=== PATIENT | female | born 1995 | race Caucasian/White ===

== ENCOUNTER 2017-05-19 14:14 | Emergency (ER) | payer MEDICAID ==
[~2017-05-19] VITALS: Ht 170.2 cm; Wt 63.5 kg
[~2017-05-19 14:14] MED LIST: PREN-153 OR; PREN-96 OR
[2017-05-19] MEDS ORDERED: ACTIVATED CHARCOAL 50 GM/240 ML SOL PO ONE (14:45)
[2017-05-19 15:10] LABS: Basophils # (auto) 0 uL; Basophils % (auto) 0.4 % (0.0-2.0); CONDITION Y; Eosinophils # (auto) 0.1 uL; Eosinophils % (auto) 1.6 % (0.0-7.0); Hematocrit 41.8 % (36.0-46.0); Hemoglobin 14.3 g/dL (12.2-16.2); Lymphocytes # (auto) 2.3 uL; Lymphocytes % (auto) 35.8 % (10.0-50.0); Mean Corpuscular Hemoglobin 31.2 pg (28.0-32.0); Mean Corpuscular Hgb Conc. 34.1 g/dL (32.0-36.0); Mean Corpuscular Volume 91.3 fL (80.0-100.0); Mean Platelet Volume 8.5 fL (7.4-10.4); Monocytes # (auto) 0.7 uL; Monocytes % (auto) 10.3 % (0.0-12.0); Neutrophils # (auto) 3.4 uL; Neutrophils % (auto) 51.9 % (37.0-80.0); Platelet Count (auto) 363 10^3/uL (140-450); Red Cell Distribution Width 12.7 % (11.6-16.0); White Blood Cell 6.5 10^3/uL (4.4-10.8)
[2017-05-19 15:28] LABS: Albumin 3.8 g/dL (3.4-5.0); Alkaline Phosphatase 26 U/L (45-117); Anion Gap 8 (5-15); Aspartate Aminotransferase 9 U/L (15-37); BUN/Creatinine Ratio 13.2; Bilirubin, Total 0.7 mg/dL (0.2-1.0); Blood Urea Nitrogen 9 mg/dL (7-18); Calcium 8.5 mg/dL (8.5-10.1); Carbon Dioxide 23 mmol/L (21-32); Chloride 112 mmol/L (98-107); GFR African American 140 mL/min; GFR Non-African American 116 mL/min; Glucose 108 mg/dL (74-106); Potassium 3.3 mmol/L (3.5-5.1); Sodium 143 mmol/L (136-145); Total Protein 7.7 g/dL (6.4-8.2)
[2017-05-19 15:30] LABS: Acetaminophen < 2.0 ug/mL (10-30); Salicylate < 1.7 mg/dL (2.8-20.0)
[2017-05-21] MEDS ORDERED: BACITRACIN TOP OINT 1 UD PKG TOP ONE (14:15)
[2017-05-21] MEDS ORDERED: IBUPROFEN 600 MG TAB PO ONE (15:00)
[2017-05-21] MEDS ORDERED: ALPRAZolam 0.5 MG TAB PO ONE (16:15)
[2017-05-21 19:16] VITALS: BP 122/78
== END 2017-05-21 15:02 | disposition short-term general hospital (02) ==
LOC: ER 14:15
DX: R45.851 Suicidal ideations (principal); F41.9 Anxiety disorder, unspecified; F12.10 Cannabis abuse, uncomplicated; F31.9 Bipolar disorder, unspecified; F17.210 Nicotine dependence, cigarettes, uncomplicated
CPT/HCPCS: 36415; 80053; 80307; 80320; 80329; 85025; 93005

== ENCOUNTER 2019-07-03 09:26 | Emergency (ER) | payer MEDICAID, OTHER ==
[~2019-07-03] VITALS: Ht 172.7 cm; Wt 65.8 kg
[2019-07-03 09:30] VITALS: BP 138/91
== END 2019-07-03 09:34 | disposition left against medical advice (07) ==
LOC: ER 09:29
DX: S01.311A Laceration without foreign body of right ear, initial encounter (principal); Z53.21 Procedure and treatment not carried out due to patient leaving prior to being seen by health care provider; X58.XXXA Exposure to other specified factors, initial encounter; Y93.89 Activity, other specified; Y99.8 Other external cause status; Y92.89 Other specified places as the place of occurrence of the external cause

== ENCOUNTER 2019-12-09 18:53 | Inpatient (IN) | payer SELFPAY ==
[~2019-12-09] VITALS: Ht 170.2 cm; Wt 64.5 kg
[2019-12-09] MEDS ORDERED: SODIUM CHLORIDE 0.9% 1,000 ML IV ONE (19:20)
[2019-12-09] MEDS ORDERED: HYDROmorphone HCL 2 MG/ML VL IV ONE (19:30)
[2019-12-09] MEDS ORDERED: ONDANSETRON HCL 4 MG/2 ML VIAL IV ONE (19:30)
[2019-12-09 22:27] LABS: Eosinophils # (auto) 0 uL; Eosinophils % (auto) 0.1 % (0.0-7.0)
[2019-12-09 22:28] LABS: Basophils # (auto) 0.1 uL; Basophils % (auto) 0.4 % (0.0-2.0); Hematocrit 34.3 % (36.0-46.0); Hemoglobin 11.3 g/dL (12.2-16.2); Lymphocytes # (auto) 1.2 uL; Lymphocytes % (auto) 8.2 % (10.0-50.0); Mean Corpuscular Hemoglobin 27.6 pg (28.0-32.0); Mean Corpuscular Hgb Conc. 33.1 g/dL (32.0-36.0); Mean Corpuscular Volume 83.4 fL (80.0-100.0); Monocytes # (auto) 1.8 uL; Monocytes % (auto) 12.1 % (0.0-12.0); Neutrophils # (auto) 11.8 uL; Neutrophils % (auto) 79.2 % (37.0-80.0); Platelet Count (auto) 503 10^3/uL (140-450); Red Blood Cells 4.11 10^6/uL (4.0-5.20); Red Cell Distribution Width 14.6 % (11.8-14.3); White Blood Cell 14.9 10^3/uL (4.4-10.8)
[2019-12-09 23:33] LABS: Urine Bacteria FEW /hpf (None Seen); Urine Blood Negative /uL (Negative); Urine Mucus FEW (None Seen); Urine Specific Gravity 1.025 (1.001-1.035); Urine WBC 3 /hpf (0 - 5)
[2019-12-09 23:34] LABS: Alcohol, Urine < 3.0 mg/dL (0-5); Amphetamine Screen, Urine POSITIVE (NEGATIVE); Barbiturate Scree,Urine NEGATIVE (NEGATIVE); Benzodiazephine Screen, Urine NEGATIVE (NEGATIVE); Cannabinoid Screen, Urine NEGATIVE (NEGATIVE); Cocaine Screen, Urine NEGATIVE (NEGATIVE); Opiate Scree,Urine NEGATIVE (NEGATIVE); Phencyclidine Screen, Urine NEGATIVE (NEGATIVE)
[2019-12-09 23:48] LABS: Albumin 2.3 g/dL (3.4-5.0); BUN/Creatinine Ratio 18.4; Calcium 8.1 mg/dL (8.5-10.1); Potassium 3.8 mmol/L (3.5-5.1)
[2019-12-09 23:51] LABS: Bilirubin, Total 0.7 mg/dL (0.2-1.0); Total Protein 7.8 g/dL (6.4-8.2)
[2019-12-10] MEDS ORDERED: MIDAZOLAM HCL 5 MG/ML-1ML VIAL IV ONE (03:00)
[2019-12-10] MEDS ORDERED: SODIUM CHLORIDE 0.9% 1,000 ML IV ONE (03:15)
[2019-12-10] MEDS ORDERED: MORPHINE SULFATE 4 MG/ML SYR/VIAL IV PRN ×3 (03:15→13:00)
[2019-12-10] MEDS ORDERED: HYDROcodone-ACET 5/325MG TAB PO PRN (03:15)
[2019-12-10] MEDS ORDERED: ONDANSETRON HCL 4 MG/2 ML VIAL IV PRN (03:15)
--- NOTE | 2019-12-10 04:00 | NUR ---
REPORT Received report from IDENTITY MANAGEMENT DEVELOPERJAYLEN Villatoro
[2019-12-10 04:30] VITALS: BP 109/63
--- NOTE | 2019-12-10 04:30 | NUR ---
MS admit from ER TAHIRA,KOKI Henry admitted to tele/MS after SBAR received from Evelyne Villatoro QUARRYING SPECIALIST. Patient oriented to Joselin Zamora RN primary RN, unit, room, bed, and unit policies regarding patient care and visiting hours. Patient weighed by bedscale and encouraged to call if they need something. All questions and concerns addressed, patient verbalized understanding. Note: Fall and safety precautions in place. Call light within reach.
[2019-12-10 05:00] VITALS: BP 109/69
--- NOTE | 2019-12-10 05:30 | NUR ---
SOCIAL SERVICE Patient states she's homeless and doesn't eat. When informed her social service would get involved for homeless situation, patient began crying, asking to please not consult social service. When patient was asked to explain, patient stated something similar to; "My baby's father and his family gets food stamps for themselves and my son so I try not to eat their food. I get by asking friends for food." "I'm homeless, I'm out on the streets, but my son lives with his dad and '[place].' He's taken care of, I have a plan for my living situation. I'm going to get clean and go live with my mom. Please don't get social service involved because then they'll get the state involved and it will turn into a CPS case." Tried to explain to patient that rn social work can offer resources to help her own living and eating situation, patient still crying, refusing to have social service involved. Social service consult entered per protocol for advanced directive information, current healthcare access situation/no PCP, current substance abuse, and situation stated above. Will inform day shift RN and oncoming charge coordinator
--- NOTE | 2019-12-10 06:20 | NUR ---
SOCIAL SERVICE Spoke with studio operations engineer in charge Shiloh, informed her of patient's current living and eating situation and refusal for social service. rn on site stated patient has the right to refuse and to cancel social service consult. Social service consult was cancelled, will inform day shift RN of concern
[2019-12-10 08:41] VITALS: BP 118/66
[2019-12-10] MEDS: FAMOTIDINE 20 MG TAB PO SCH ×2 (11:10→21:03)
[2019-12-10 13:00] VITALS: BP 124/70
--- NOTE | 2019-12-10 13:05 | NUR ---
Refusing Labs Patient is refusing labs at this time. Dr. Lloyd in to speak with patient at this time. Patient has agreed to have labs drawn.
[2019-12-10] MEDS ORDERED: VANCOMYCIN PER PHARMACY 0 MG IV SCH ×2 (13:15→22:45)
--- NOTE | 2019-12-10 13:15 | NUR ---
Assuming Care Assuming care of patient at this time. Patient is resting in bed with eyes closed. Patient shows no signs or symptoms of distress or shortness of breath. Will continue to round hourly and as needed.
[2019-12-10] MEDS: MORPHINE SULFATE 4 MG/ML SYR/VIAL IV PRN ×2 (13:47→21:03)
[2019-12-10] MEDS ORDERED: VANCOMYCIN 1GM/250ML 250 ML IV SCH (14:00)
--- NOTE | 2019-12-10 16:30 | NUR ---
Page to Dr. Lloyd Page to Dr. Lloyd at this time. Awaiting call back.
--- NOTE | 2019-12-10 16:45 | NUR ---
Call back from Dr. Lloyd Call back from Dr. Lloyd at this time. Dr. Lloyd aware of lab being unable to draw labs on patient. Patient is now refusing a redraw. Dr. Lloyd aware. Dr. Lloyd does not want patient to receive antibiotics until blood draws are complete.
[2019-12-10 17:04] VITALS: BP 108/48
--- NOTE | 2019-12-10 17:30 | NUR ---
Call from Pharmacy Pharmacy will cancel Vancomycin order for now. When blood cultures are complete, notify pharmacy to reinstate vancomycin order.
--- NOTE | 2019-12-10 19:24 | NUR ---
Closing Shift Note Patient resting in bed with eyes closed. No distress noted. Patient does not appear to be in any pain. Report given. Will endorse care to the caustic cresylate shift superintendent RN.
--- NOTE | 2019-12-10 19:26 | NUR ---
Opening Shift Note Assumed care of patient, awake and alert x 4. No S/S of distress/SOB. Bed is in lowest position and locked. Call light within reach. Board updated. Patient responds to shaking. Patient does not report any pain at this time. Instructed on POC and to call for assist PRN, will continue to monitor for changes Q1hr and PRN.
--- NOTE | 2019-12-10 20:16 | NUR ---
Patient refusing to allow me to turn the patient so that I may assess her back. Patient states it is too painful to turn. Patient educated on importance of moving in bed regularly to prevent pressure ulcer formation.
[2019-12-10] MEDS: ACETAMINOPHEN 325 MG TAB PO PRN (20:49)
[2019-12-10 21:59] LABS: Basophils # (auto) 0 uL; Basophils % (auto) 0.1 % (0.0-2.0); Eosinophils # (auto) 0 uL; Eosinophils % (auto) 0.2 % (0.0-7.0); Mean Corpuscular Volume 83.1 fL (80.0-100.0); Neutrophils # (auto) 9.4 uL
[2019-12-10 22:00] VITALS: BP 108/63
[2019-12-10 22:02] LABS: Hematocrit 32.8 % (36.0-46.0); Lymphocytes # (auto) 1.5 uL; Lymphocytes % (auto) 12.5 % (10.0-50.0); Mean Corpuscular Hemoglobin 27.9 pg (28.0-32.0); Mean Corpuscular Hgb Conc. 33.5 g/dL (32.0-36.0); Monocytes # (auto) 1.3 uL; Monocytes % (auto) 10.6 % (0.0-12.0); Neutrophils % (auto) 76.6 % (37.0-80.0); Platelet Count (auto) 490 10^3/uL (140-450); Red Blood Cells 3.95 10^6/uL (4.0-5.20); Red Cell Distribution Width 14.5 % (11.8-14.3); White Blood Cell 12.3 10^3/uL (4.4-10.8)
--- NOTE | 2019-12-10 22:04 | NUR ---
Paging hospitalist for elevated temperature (101.6) and heart rate (111). Patient has not received any antibiotic. Tylenol given. Cooling measures initiated. Patient refused blood culture this afternoon so MD Lloyd cancelled Vancomycin order until blood culture was taken. We just took blood culture now. Temp reassessment: 100.7. Cooling measures initiated.
--- NOTE | 2019-12-10 22:40 | NUR ---
Spoke to SOLITARIO Sin. Order: start Vancomycin per pharmacy protocol now No other orders given.
[2019-12-10] MEDS: VANCOMYCIN 1GM/250ML 250 ML IV SCH (23:27)
[2019-12-11 05:34] VITALS: BP 106/60
[2019-12-11] MEDS: VANCOMYCIN 1GM/250ML 250 ML IV SCH ×3 (06:30→22:08)
[2019-12-11] MEDS: MORPHINE SULFATE 4 MG/ML SYR/VIAL IV PRN ×5 (06:31→23:01)
[2019-12-11] MEDS: HYDROcodone-ACET 10/325MG TAB PO PRN ×4 (08:10→22:22)
[2019-12-11] MEDS: ACETAMINOPHEN 325 MG TAB PO PRN (08:12)
[2019-12-11 09:00] VITALS: BP 177/49
[2019-12-11] MEDS ORDERED: LORazepam 2MG/ML-1ML VIAL IV ONE (10:15)
[2019-12-11] MEDS: FAMOTIDINE 20 MG TAB PO SCH ×2 (11:29→22:08)
[2019-12-11] MEDS ORDERED: GADOTERIDOL 279.3mg/mL 20ml Vial IV ONE (11:46)
--- NOTE | 2019-12-11 13:00 | NUR ---
UNABLE TO OBTAIN 1300 VITALS . PT IS NOT IN ASSIGNED ROOM AT THIS TIME .
--- NOTE | 2019-12-11 15:40 | NUR ---
PATIENT NOT IN ROOM PATIENT NOT IN ROOM FOR MEDICATION ADMINISTRATION.
--- NOTE | 2019-12-11 15:55 | NUR ---
PATIENT RETURNED PATIENT RETURNED TO ROOM, EDUCATED ON THE POLICY AND PROCEDURES OF LEAVING THE UNIT.
[2019-12-11 17:00] VITALS: BP 108/56
[2019-12-11 22:00] VITALS: BP 104/63
--- NOTE | 2019-12-11 23:04 | NUR ---
IV infiltrated. Shortly after giving morphine to patient, IV began to leak considerably and swelling was noted after flushing IV with NS flush. IV catheter removed with catheter intact. Gauze placed over site and site wrapped with Coban. Attempted to look for appropriate vein to start another IV catheter but patient began to cry and refused to allow me to continue. I informed the patient that there was approximately half a bag full of vancomycin left to administer and that I would not be able to administer morphine without an IV. Patient stated "I don't want an IV right now." I verified that patient was refusing IV and she said "yes."
--- NOTE | 2019-12-12 00:06 | NUR ---
patient has not yet voided since having her Angel catheter removed. Patient states she does not feel the urge to void and that "before I came in it to a really long ass time before I peed." Patient declined to have bladder scan after I palpated bladder and did not feel any distension. I encouraged patient to drink more water to urge her to void. I explained to patient that it is important to try and Patient states she does not feel any pressure or pain in her groin/lower abdomen. Will continue to assess.
--- NOTE | 2019-12-12 00:49 | NUR ---
Patient voided 550 mls of light ellen urine. Will continue to monitor.
[2019-12-12] MEDS: HYDROcodone-ACET 10/325MG TAB PO PRN ×4 (03:56→18:59)
--- NOTE | 2019-12-12 05:16 | NUR ---
Patient still refuses to have an IV placed and is, by extension refusing Vancomycin. I told patient that if she did not allow me to place an IV, I could not give her vancomycin. She still refuses IV.
[2019-12-12 05:30] VITALS: BP 109/60
[2019-12-12] MEDS: VANCOMYCIN 1GM/250ML 250 ML IV SCH (05:45)
[2019-12-12 06:30] LABS: Basophils # (auto) 0 uL; Basophils % (auto) 0.2 % (0.0-2.0); Eosinophils # (auto) 0.1 uL; Eosinophils % (auto) 1.6 % (0.0-7.0); Hematocrit 31.3 % (36.0-46.0); Hemoglobin 10.4 g/dL (12.2-16.2); Lymphocytes # (auto) 1.2 uL; Lymphocytes % (auto) 14.9 % (10.0-50.0); Mean Corpuscular Hemoglobin 27.6 pg (28.0-32.0); Mean Corpuscular Hgb Conc. 33.1 g/dL (32.0-36.0); Mean Corpuscular Volume 83.4 fL (80.0-100.0); Monocytes # (auto) 0.8 uL; Monocytes % (auto) 10.4 % (0.0-12.0); Neutrophils # (auto) 5.9 uL; Neutrophils % (auto) 72.9 % (37.0-80.0); Platelet Count (auto) 489 10^3/uL (140-450); Red Blood Cells 3.76 10^6/uL (4.0-5.20); Red Cell Distribution Width 14.9 % (11.8-14.3); White Blood Cell 8.1 10^3/uL (4.4-10.8)
[2019-12-12 06:47] LABS: INR 1.13 (0.9-1.15); Partial Thromboplastin Time 29.8 sec (23.64-32.05)
--- NOTE | 2019-12-12 07:30 | NUR ---
Opening Shift Note Assumed care of patient from noc shift RN, awake and alert oriented x4. No SOB noted, patient is teary and reports 10/10 pain. Instructed on plan of care and to call for assist PRN. Bed is in lowest locked position with bed rails up x2 and call light is within reach of the patient.
[2019-12-12 07:43] LABS: BUN/Creatinine Ratio 13.2; Calcium 8.6 mg/dL (8.5-10.1); Potassium 3.7 mmol/L (3.5-5.1)
[2019-12-12 08:00] VITALS: BP 110/59
--- NOTE | 2019-12-12 08:50 | NUR ---
Dr gillis at bedside. Encouraged patient to ambulate. all medication changed to pills, since she refuses IV access to be established.
[2019-12-12 09:00] VITALS: BP 110/59
[2019-12-12] MEDS: DOXYCYCLINE 100 MG TAB/CAP PO SCH ×2 (10:08→22:06)
[2019-12-12] MEDS: FAMOTIDINE 20 MG TAB PO SCH ×2 (10:09→22:05)
[2019-12-12] MEDS ORDERED: GABAPENTIN 100 MG CAP PO ONE (12:45)
[2019-12-12 13:00] VITALS: BP 105/55
[2019-12-12] MEDS: BACLOFEN 10 MG TAB PO SCH ×2 (14:33→22:05)
--- NOTE | 2019-12-12 15:24 | NUR ---
assessment Patient is a 24 year old female who is alert and oriented. Patient informed me she lives with her in laws and functions independently. Patient informed me she does not need a transition social worker and does not want to talk about anything. I asked patient if she would like resources for amphetamine use and she cussed at me and said no leave me alone. I informed patient if she changes her mind to call me back and ill return to speak with her. Addendum: 12/12/19 at 1526 by Inez PALOMO Amended: Links added.
--- NOTE | 2019-12-12 16:00 | NUR ---
patient continues to refuse complete venous ultrasound bilateral as ordered, despite education on importance of completing ultrasound. On second attempt, patient allowed only left femoral to be done before refusing. Will continue to monitor and provide q1hr and prn care.
[2019-12-12 17:00] VITALS: BP 100/50
[2019-12-12 22:00] VITALS: BP 95/70
[2019-12-12] MEDS ORDERED: GABAPENTIN 100 MG CAP PO SCH (22:00)
[2019-12-13 01:05] VITALS: BP 102/58
[2019-12-13] MEDS: HYDROcodone-ACET 10/325MG TAB PO PRN ×2 (01:11→09:06)
[2019-12-13 05:00] VITALS: BP 90/55
[2019-12-13] MEDS: BACLOFEN 10 MG TAB PO SCH (05:47)
--- NOTE | 2019-12-13 07:39 | NUR ---
Opening Shift Note Assumed care of patient from noc shift RN, asleep in bed but easily aroused with name call. No SOB noted or s/s distress noted at this time. Instructed on plan of care and to call for assist PRN. Bed is in lowest locked position with bed rails up x2 and call light is within reach of the patient.
[2019-12-13] MEDS ORDERED: GABA100C9 PO (08:46)
[2019-12-13 09:00] VITALS: BP 95/64
--- NOTE | 2019-12-13 10:00 | NUR ---
PATIENT ELOPED FROM UNIT BEFORE DISCHARGE INSTRUCTION WAS PROVIDED. PATIENT DOES NOT HAVE ANY IV ACCESS AND IS A MED/SURG PATIENT. NEXT OF KIN CALLED AND IS AWARE OF PATIENT LEAVING WITHOUT DISCHARGE INFORMATION.
== END 2019-12-13 11:50 | disposition left against medical advice (07) | DRG 551 ==
LOC: EDBD 18:53 → ER 18:58 → OVERFLOW 18:59 → WEST WING 12-10 04:41
PROVIDERS: ADMIT Nurse Practitioner; ATTEND Internal Medicine
DX: M54.16 Radiculopathy, lumbar region (principal); E43 Unspecified severe protein-calorie malnutrition; F31.60 Bipolar disorder, current episode mixed, unspecified; F41.9 Anxiety disorder, unspecified; F17.210 Nicotine dependence, cigarettes, uncomplicated; F11.10 Opioid abuse, uncomplicated; G62.9 Polyneuropathy, unspecified; F15.10 Other stimulant abuse, uncomplicated; R50.9 Fever, unspecified; Z88.8 Allergy status to other drugs, medicaments and biological substances; Z88.2 Allergy status to sulfonamides; Z88.1 Allergy status to other antibiotic agents; Z79.899 Other long term (current) drug therapy; Z68.22 Body mass index [BMI] 22.0-22.9, adult
CPT/HCPCS: 36415; 71045; 72131; 72158; 76705; 80048; 80053; 80202; 80307; 81001; 84702; 85025; 85610; 85652; 85730; 86141; 87040; 93970; 96361; 96374; 96375; G0378; J2250; J2405

== ENCOUNTER 2019-12-19 16:28 | Inpatient (IN) | payer SELFPAY ==
[~2019-12-19] VITALS: Ht 172.7 cm; Wt 60.4 kg
[~2019-12-19 16:28] MED LIST changes: +GABA100C9 PO; -PREN-153 OR; -PREN-96 OR
[2019-12-19] MEDS ORDERED: ACETAMINOPHEN 325 MG TAB PO ONE ×2 (16:45→16:47)
[2019-12-19] MEDS ORDERED: SODIUM CHLORIDE 0.9% 500 ML IV ONE (19:18)
[2019-12-19] MEDS ORDERED: SODIUM CHLORIDE 0.9% 1,000 ML IV ONE (22:15)
[2019-12-20 00:36] LABS: Albumin 2.1 g/dL (3.4-5.0); Potassium 4.5 mmol/L (3.5-5.1)
[2019-12-20 00:39] LABS: BUN/Creatinine Ratio 10.7; Bilirubin, Total 0.5 mg/dL (0.2-1.0); Calcium 9.3 mg/dL (8.5-10.1); Total Protein 8.9 g/dL (6.4-8.2)
[2019-12-20 00:53] LABS: Urine Bacteria MOD /hpf (None Seen); Urine Blood 1+ /uL (Negative); Urine Hyaline Cast FEW /lpf (0 - 2); Urine Mucus FEW (None Seen); Urine Specific Gravity 1.015 (1.001-1.035); Urine WBC 66 /hpf (0 - 5)
[2019-12-20 01:08] LABS: Alcohol, Urine < 3.0 mg/dL (0-5); Amphetamine Screen, Urine POSITIVE (NEGATIVE); Barbiturate Scree,Urine NEGATIVE (NEGATIVE); Benzodiazephine Screen, Urine NEGATIVE (NEGATIVE); Cannabinoid Screen, Urine NEGATIVE (NEGATIVE); Cocaine Screen, Urine NEGATIVE (NEGATIVE); Phencyclidine Screen, Urine NEGATIVE (NEGATIVE)
[2019-12-20 01:15] LABS: Opiate Scree,Urine NEGATIVE (NEGATIVE)
[2019-12-20] MEDS ORDERED: ONDANSETRON HCL 4 MG/2 ML VIAL IV ONE (05:45)
[2019-12-20] MEDS ORDERED: MORPHINE SULFATE 4 MG/ML SYR/VIAL IV ONE (05:45)
[2019-12-20 05:52] LABS: Basophils # (auto) 0 uL; Basophils % (auto) 0.1 % (0.0-2.0); Eosinophils # (auto) 0 uL; Eosinophils % (auto) 0.2 % (0.0-7.0); Hematocrit 32.5 % (36.0-46.0); Hemoglobin 10.6 g/dL (12.2-16.2); Lymphocytes # (auto) 1.3 uL; Lymphocytes % (auto) 5.8 % (10.0-50.0); Mean Corpuscular Hemoglobin 26.6 pg (28.0-32.0); Mean Corpuscular Hgb Conc. 32.7 g/dL (32.0-36.0); Mean Corpuscular Volume 81.5 fL (80.0-100.0); Monocytes # (auto) 1.7 uL; Monocytes % (auto) 7.6 % (0.0-12.0); Neutrophils # (auto) 18.9 uL; Neutrophils % (auto) 86.3 % (37.0-80.0); Platelet Count (auto) 664 10^3/uL (140-450); Red Blood Cells 3.99 10^6/uL (4.0-5.20); Red Cell Distribution Width 14.9 % (11.8-14.3); White Blood Cell 21.9 10^3/uL (4.4-10.8)
[2019-12-20 06:08] LABS: INR 1.26 (0.9-1.15); Partial Thromboplastin Time 30.8 sec (23.64-32.05)
[2019-12-20] MEDS ORDERED: VANCOMYCIN PER PHARMACY 0 MG IV SCH (07:15)
[2019-12-20] MEDS ORDERED: PIPERACILLIN-TAZOB 3.375GM 100 ML IV ONE (07:15)
[2019-12-20 08:01] LABS: Albumin 2.1 g/dL (3.4-5.0); Bilirubin, Direct 0.3 mg/dL (0-0.2)
[2019-12-20 08:05] LABS: Bilirubin, Total 0.5 mg/dL (0.2-1.0); Total Protein 8.6 g/dL (6.4-8.2)
[2019-12-20] MEDS ORDERED: IOHEXOL 350 MG/ML 100ML IJ ONE ×3 (08:46→14:31)
[2019-12-20] MEDS ORDERED: VANCOMYCIN 750mg/250ml 250 ML IV ONE (09:00)
[2019-12-20] MEDS ORDERED: LORazepam 2MG/ML-1ML VIAL IV ONE (09:00)
[2019-12-20] MEDS ORDERED: diphenhdrAMINE HCL 50 MG/1 ML VL IV ONE (10:30)
[2019-12-20] MEDS ORDERED: diphenhdrAMINE HCL 50 MG/1 ML VL ONE (10:34)
[2019-12-20] MEDS ORDERED: HYDROmorphone HCL 2 MG/ML VL IV ONE (11:30)
[2019-12-20] MEDS ORDERED: PROMETHAZINE HCL 25 MG/ML 1ML IV ONE (11:30)
[2019-12-20] MEDS ORDERED: PROMETHAZINE HCL 25 MG/ML 1ML ONE (11:52)
[2019-12-20] MEDS ORDERED: NITROGLYCERIN 0.4 MG SL TAB SL PRN (13:00)
[2019-12-20] MEDS ORDERED: HYDROmorphone HCL 2 MG/ML VL IV PRN (13:00)
[2019-12-20] MEDS ORDERED: MORPHINE SULF INJ 2 MG/ML SYRINGE 1ML IV PRN (13:00)
[2019-12-20] MEDS: D5W/SOD CHL 0.45% 1,000 ML IV SCH ×2 (14:00→23:00)
[2019-12-20] MEDS ORDERED: MEROPENEM 1GM IVPB 100 ML IV SCH (14:00)
[2019-12-20] MEDS: ONDANSETRON HCL 4 MG/2 ML VIAL IV SCH ×2 (14:24→22:00)
[2019-12-20] MEDS: HYDROmorphone HCL 2 MG/ML VL IV PRN ×3 (14:49→20:15)
--- NOTE | 2019-12-20 15:47 | NUR ---
Telemetry admit from ER KOKI HOFFMANN admitted to Telemetry unit. Patient oriented to Sherrie Verdugo, primary RN, unit, room, bed, and unit policies regarding patient care and visiting hours. Patient now on continuous telemetry monitoring, tele box #55 and telemetry reading on arrival to unit is ST. Patient placed on bedside oxygen, weighed by bedscale and encouraged to call if they need something. All questions and concerns addressed, patient verbalized understanding.
--- NOTE | 2019-12-20 15:50 | NUR ---
SBAR report received from CREATIVE/ART DIRECTOR
[2019-12-20 17:00] VITALS: BP 104/64
--- NOTE | 2019-12-20 19:32 | NUR ---
Closing note patient is resting in bed, no s/s of sob/ distress noted/stated. Bed at lowest locked position, bed side rails up x2 and call light within reach. Care endorsed to NOC JAYLEN Wilson.
[2019-12-20] MEDS: VANCOMYCIN 750mg/250ml 250 ML IV SCH ×2 (21:00→21:10)
[2019-12-20] MEDS: PANTOPRAZOLE 40 MG TAB PO SCH (21:48)
[2019-12-20 22:00] VITALS: BP 111/58
--- NOTE | 2019-12-20 22:20 | NUR ---
DR Antonino SAN MADE AWARE OF PT'S HR. NEW LAB AND MED ORDERS RECEIVED.
[2019-12-20] MEDS ORDERED: LINEZOLID 600MG/300ML 300 ML IV SCH (22:30)
[2019-12-20] MEDS ORDERED: PATIENTS OWN MEDICATION (ZYVOX 600 MG) IV SCH (22:30)
[2019-12-20] MEDS: MEROPENEM 1GM IVPB 100 ML IV SCH (23:38)
--- NOTE | 2019-12-21 02:20 | NUR ---
DR Antonino SAN AT BEDSIDE TO SEE PT
[2019-12-21] MEDS: LINEZOLID 600MG/300ML 300 ML IV SCH ×2 (03:50→15:32)
[2019-12-21 05:00] VITALS: BP 106/62
[2019-12-21] MEDS: ONDANSETRON HCL 4 MG/2 ML VIAL IV SCH ×2 (05:44→21:57)
[2019-12-21 06:03] LABS: Basophils # (auto) 0 uL; Basophils % (auto) 0.1 % (0.0-2.0); Eosinophils # (auto) 0 uL; Monocytes # (auto) 1.7 uL
[2019-12-21 06:06] LABS: Hematocrit 29.2 % (36.0-46.0); Hemoglobin 9.4 g/dL (12.2-16.2); Lymphocytes # (auto) 1.2 uL; Lymphocytes % (auto) 5.7 % (10.0-50.0); Mean Corpuscular Hemoglobin 26.2 pg (28.0-32.0); Mean Corpuscular Hgb Conc. 32.3 g/dL (32.0-36.0); Neutrophils # (auto) 18.8 uL; Neutrophils % (auto) 86.2 % (37.0-80.0); Platelet Count (auto) 611 10^3/uL (140-450); Red Cell Distribution Width 15.2 % (11.8-14.3); White Blood Cell 21.8 10^3/uL (4.4-10.8)
[2019-12-21 06:20] LABS: Albumin 1.8 g/dL (3.4-5.0); Calcium 8.4 mg/dL (8.5-10.1); Potassium 3.9 mmol/L (3.5-5.1)
[2019-12-21 06:22] LABS: BUN/Creatinine Ratio 10.8
[2019-12-21 06:24] LABS: Bilirubin, Total 0.4 mg/dL (0.2-1.0); Total Protein 7.7 g/dL (6.4-8.2)
--- NOTE | 2019-12-21 07:20 | NUR ---
OPENING SHIFT NOTES Assumed care of patient from restaurant shift leader RN. Patient is alert and oriented x4, patient complaining of pain "05/01", pain medication given by restaurant shift leader RN. Patient was updated on the plan of care and verbalized understanding. Patient has a toribio, draining clear yellow urine to gravity, tubing is free of kinks and loops, bag is hung below bladder level. Bed is locked, in the lowest position, side rails up x2, and call light is in reach. Patient was encouraged to call for assistance.
[2019-12-21] MEDS: HYDROmorphone HCL 2 MG/ML VL IV PRN ×3 (07:27→20:41)
[2019-12-21] MEDS: MEROPENEM 1GM IVPB 100 ML IV SCH ×3 (08:06→23:57)
--- NOTE | 2019-12-21 08:06 | NUR ---
MRSA Swab Collected and sent to lab.
[2019-12-21] MEDS: D5W/SOD CHL 0.45% 1,000 ML IV SCH ×2 (08:07→19:20)
[2019-12-21 09:00] VITALS: BP 108/59
--- NOTE | 2019-12-21 09:13 | NUR ---
Patient taken to CT accompanied by tech and two volunteers via bed, no signs of distress noted upon departure.
--- NOTE | 2019-12-21 09:30 | NUR ---
Patient back from CT no signs of distress noted.
[2019-12-21] MEDS: PANTOPRAZOLE 40 MG TAB PO SCH ×2 (10:10→21:57)
[2019-12-21] MEDS: HYDROcodone-ACET 5/325MG TAB PO PRN ×2 (10:10→22:02)
--- NOTE | 2019-12-21 10:18 | NUR ---
CALL FROM Rose Marie SAN stating "patient was mistakenly admitted under his care, transfer care to hospitalist" Order for transfer of care/hospitalist consult and communication order.
--- NOTE | 2019-12-21 10:25 | NUR ---
DR. FRANCO ASSIGNED TO PATIENT per Dr. Sweet, informed pocket secretary assembler.
--- NOTE | 2019-12-21 10:29 | NUR ---
PATIENT COMPLAINING OF LOWER EXTREMITY CRAMPING AND PAIN. Patient repositioned, pillow placed under knees as requested by patient. Patient stating the pillow "helped and it feels better". Will continue to monitor.
--- NOTE | 2019-12-21 11:02 | NUR ---
HOSPITALIST AT BEDSIDE Dr. Pastrana at bedside, updated on patient status, plan of care reviewed with patient and she verbalized understanding. New order received for Bilateral lower extremity venous study to R/O VTE.
[2019-12-21 12:46] VITALS: BP 112/64
--- NOTE | 2019-12-21 13:03 | NUR ---
PATIENT'S MOTHER CALLED Patient does not have a password set up, after receiving permission from patient, mother was updated on patient status and plan of care, verbalized understanding. All questions answered.
--- NOTE | 2019-12-21 13:06 | NUR ---
PATIENT'S GRANDMOTHER CALLED No password is set up, after receiving consent from the patient grandmother Lashell was updated on patient status and plan of care. All questions answered.
--- NOTE | 2019-12-21 13:17 | NUR ---
Patient refused US complaining of pain, patient stating pain "9/10". Will medicate as ordered.
--- NOTE | 2019-12-21 14:18 | NUR ---
PATIENT REFUSING DOPPLER OF LOWER EXTREMITIES Patient was educated on the procedure and verbalized understanding, stating that her "legs hurt too much" and that she "wants to do it when they don't hurt as bad". Dr. Pastrana made aware.
[2019-12-21 17:10] VITALS: BP 107/54
--- NOTE | 2019-12-21 19:25 | NUR ---
Opening Shift Note Received report from Stephanie YORK. Assumed care of patient, awake and alert. In mild distress complaining of bilateral upper and lower extremity pain, will give pain medication as ordered.. Instructed on POC and to call for assist PRN, will continue to monitor for changes Q1hr and PRN.
[2019-12-21 22:00] VITALS: BP 118/50
[2019-12-22] MEDS: HYDROmorphone HCL 2 MG/ML VL IV PRN ×5 (01:27→21:32)
[2019-12-22] MEDS: LINEZOLID 600MG/300ML 300 ML IV SCH ×2 (03:53→15:34)
[2019-12-22 05:00] VITALS: BP 120/60
[2019-12-22] MEDS: D5W/SOD CHL 0.45% 1,000 ML IV SCH ×2 (05:35→15:00)
[2019-12-22] MEDS: ONDANSETRON HCL 4 MG/2 ML VIAL IV SCH ×3 (05:35→21:33)
--- NOTE | 2019-12-22 07:17 | NUR ---
OPENING SHIFT NOTES Assumed care of patient from retail shift manager RN. Patient is alert and oriented x4, complaining of pain in her bilateral upper and lower extremities, pain medication will be given as ordered. Patient was updated on the plan of care and verbalized understanding. Patient has a toribio, draining clear yellow urine to gravity, tubing is free of kinks and loops, bag is hung below bladder level. Bed is locked, in the lowest position, side rails up x2, and call light is in reach. Patient was encouraged to call for assistance.
[2019-12-22] MEDS: HYDROcodone-ACET 5/325MG TAB PO PRN ×3 (07:51→21:01)
[2019-12-22] MEDS: MEROPENEM 1GM IVPB 100 ML IV SCH ×3 (07:51→23:47)
[2019-12-22 08:11] LABS: Albumin 1.6 g/dL (3.4-5.0); BUN/Creatinine Ratio 15.9; Calcium 8.8 mg/dL (8.5-10.1); Potassium 3.9 mmol/L (3.5-5.1)
[2019-12-22 08:14] LABS: Bilirubin, Total 0.2 mg/dL (0.2-1.0); Total Protein 7.7 g/dL (6.4-8.2)
[2019-12-22 08:16] LABS: Eosinophils # (auto) 0.1 uL; Eosinophils % (auto) 0.5 % (0.0-7.0); Hematocrit 29.4 % (36.0-46.0); Lymphocytes # (auto) 1.5 uL; Mean Corpuscular Volume 80.9 fL (80.0-100.0); Red Blood Cells 3.63 10^6/uL (4.0-5.20); White Blood Cell 13.3 10^3/uL (4.4-10.8)
[2019-12-22 08:19] LABS: Basophils # (auto) 0.1 uL; Basophils % (auto) 0.4 % (0.0-2.0); Hemoglobin 9.7 g/dL (12.2-16.2); Lymphocytes % (auto) 11.6 % (10.0-50.0); Mean Corpuscular Hemoglobin 26.7 pg (28.0-32.0); Monocytes # (auto) 1.3 uL; Monocytes % (auto) 9.8 % (0.0-12.0); Neutrophils # (auto) 10.3 uL; Neutrophils % (auto) 77.7 % (37.0-80.0); Nucleated Red Blood Cells % 0.1 %; Platelet Count (auto) 609 10^3/uL (140-450); Red Cell Distribution Width 14.9 % (11.8-14.3)
[2019-12-22 08:40] VITALS: BP 119/74
[2019-12-22] MEDS: PANTOPRAZOLE 40 MG TAB PO SCH ×2 (09:54→21:33)
--- NOTE | 2019-12-22 11:36 | NUR ---
PATIENT C/O PAIN "9/10" in her shoulders and feet. facial grimacing and crying noted. Gave pain medication as ordered, will continue to monitor.
--- NOTE | 2019-12-22 12:06 | NUR ---
PAIN REASSESSMENT Patient states "3/10" pain, no signs of distress noted.
--- NOTE | 2019-12-22 12:41 | NUR ---
HOSPITALIST AT BEDSIDE Dr. Friedman at bedside, patient status and plan of care discussed with patient. Per Dr. Friedman he will assume care of and follow this patient.
--- NOTE | 2019-12-22 13:13 | NUR ---
PATIENT'S GRANDMOTHER CALLED No password is set up, after receiving consent from the patient's grandmother Lashell was updated on patient status and plan of care. All questions answered.
[2019-12-22 16:49] VITALS: BP 107/53
--- NOTE | 2019-12-22 19:03 | NUR ---
CLOSING SHIFT NOTE Care endorsed to administrator of home health RN. No signs of distress noted.
[2019-12-22 22:00] VITALS: BP 107/56
--- NOTE | 2019-12-22 23:40 | NUR ---
Dr. Rose Marie Zuleta at bedside.
[2019-12-23] MEDS: D5W/SOD CHL 0.45% 1,000 ML IV SCH ×3 (01:11→23:21)
[2019-12-23] MEDS: HYDROmorphone HCL 2 MG/ML VL IV PRN ×3 (01:34→10:17)
[2019-12-23] MEDS: LINEZOLID 600MG/300ML 300 ML IV SCH ×2 (04:03→15:06)
[2019-12-23] MEDS: HYDROcodone-ACET 5/325MG TAB PO PRN ×2 (04:22→09:15)
[2019-12-23 05:00] VITALS: BP 110/56
[2019-12-23] MEDS: ONDANSETRON HCL 4 MG/2 ML VIAL IV SCH ×3 (05:39→21:30)
--- NOTE | 2019-12-23 07:10 | NUR ---
Opening Shift Note: Assumed care of patient from NOC RN. Patient is awake and alert. No S/S of distress/SOB. Patient states pain level 9/10. Medications to be given when available. Angel in place, patent and draining, hung lower than bladder. Bed in lowest locked position, side rails up x 2, call light within reach. Patient instructed on POC and to call for assist PRN, will continue to monitor for changes Q1hr and PRN.
[2019-12-23] MEDS: MEROPENEM 1GM IVPB 100 ML IV SCH ×3 (07:59→23:22)
[2019-12-23 09:00] VITALS: BP 111/68
[2019-12-23 09:32] VITALS: BP_SYST 111; BP_SYST 152; BP_DIAS 68; BP_DIAS 79
[2019-12-23] MEDS: PANTOPRAZOLE 40 MG TAB PO SCH ×2 (10:17→21:30)
[2019-12-23 12:42] VITALS: BP 113/59
--- NOTE | 2019-12-23 13:01 | NUR ---
DR TIWARI: Dr. Friedman at bedside. Discussed POC with patient. Patient verbally agreed. Will continue to monitor.
[2019-12-23 13:17] LABS: Basophils # (auto) 0 10 ^3/uL (0-0.2); Eosinophils # (auto) 0.1 10 ^3/uL (0-0.8); Hematocrit 30.9 % (36.0-46.0); Hemoglobin 10.1 g/dL (12.2-16.2); Lymphocytes # (auto) 1.7 10 ^3/uL (0.4-5.4); Neutrophils # (auto) 4.9 10 ^3/uL (1.6-8.6)
[2019-12-23 13:19] LABS: Basophils % (auto) 0.3 % (0.0-2.0); Eosinophils % (auto) 0.9 % (0.0-7.0); Lymphocytes % (auto) 21.6 % (10.0-50.0); Mean Corpuscular Hemoglobin 26.5 pg (28.0-32.0); Mean Corpuscular Hgb Conc. 32.6 g/dL (32.0-36.0); Mean Corpuscular Volume 81.3 fL (80.0-100.0); Monocytes % (auto) 13.3 % (0.0-12.0); Neutrophils % (auto) 63.9 % (37.0-80.0); Platelet Count (auto) 613 10^3/uL (140-450); Red Cell Distribution Width 15.3 % (11.8-14.3); White Blood Cell 7.7 10^3/uL (4.4-10.8)
[2019-12-23 13:29] LABS: Albumin 1.7 g/dL (3.4-5.0); Calcium 8.7 mg/dL (8.5-10.1); Potassium 4.4 mmol/L (3.5-5.1)
[2019-12-23] MEDS: MORPHINE SULF INJ 2 MG/ML SYRINGE 1ML IV PRN ×3 (13:30→21:30)
[2019-12-23 13:34] LABS: BUN/Creatinine Ratio 15.9; Bilirubin, Total 0.2 mg/dL (0.2-1.0); Total Protein 7.8 g/dL (6.4-8.2)
--- NOTE | 2019-12-23 14:19 | NUR ---
Received Dovetailer Consult as pt is homeless. Pt is alert and oriented times 3. Railroad Signal Technician asked pt if she was homeless. The pt stated no she was not homeless. She will be staying with family. Pt did not wish to speak anymore.
[2019-12-23 17:00] VITALS: BP 103/58
[2019-12-23] MEDS: ACETAMINOPHEN 325 MG TAB PO PRN (19:29)
[2019-12-23 22:00] VITALS: BP 103/61
[2019-12-24] VITALS (7 sets, daily range): BP systolic 94–104; BP diastolic 52–63
[2019-12-24] MEDS: MORPHINE SULF INJ 2 MG/ML SYRINGE 1ML IV PRN ×6 (02:35→23:05)
--- NOTE | 2019-12-24 03:30 | NUR ---
Closing note: Patient asleep in bed. No S/S of pain, distress or SOB at this time. Care endorsed to JAYLEN Gray
[2019-12-24] MEDS: LINEZOLID 600MG/300ML 300 ML IV SCH ×2 (03:57→16:09)
[2019-12-24] MEDS: ACETAMINOPHEN 325 MG TAB PO PRN ×2 (05:30→14:05)
[2019-12-24] MEDS: ONDANSETRON HCL 4 MG/2 ML VIAL IV SCH ×3 (06:19→23:12)
[2019-12-24] MEDS: D5W/SOD CHL 0.45% 1,000 ML IV SCH ×2 (06:21→17:23)
[2019-12-24] MEDS: MEROPENEM 1GM IVPB 100 ML IV SCH ×3 (07:13→23:22)
[2019-12-24] MEDS: PANTOPRAZOLE 40 MG TAB PO SCH ×2 (09:07→23:12)
--- NOTE | 2019-12-24 13:56 | NUR ---
assessment Patient is a 24 year old female who is alert and oriented. Patients cognitive abilities are intact. Prior to admission patient lived home with family and functioned independently. Patient informed me she is able to care for her own ADLs. Per patient she will return home to her prior living arrangements post discharge and family will transport her home. Patient has no insurance. Per patient she has been seen by Robert Gomes and her Medi-sonia is pending. Patient has no post discharge needs at this time. I informed patient she has a right to speak to a social work professor regarding all care. I informed patient she has a right to participate in any and all discharge planning. Patient does not have a POA and advanced directive. I have offered patient information on POA and advanced directives. I informed the patient the advantages and benefits of having an Advanced Directive. Patient verbalized understanding and agreed to discharge plan. Addendum: 12/24/19 at 1358 by Inez PALOMO Amended: Links added.
--- NOTE | 2019-12-24 19:35 | NUR ---
Opening Shift Note Received report from JAYLEN Gray and assumed care of patient, awake and alert. Patient c/o generalized body pain . Instructed patient to call for assist if needed.Bed alarm on for safety .Will continue to monitor.
--- NOTE | 2019-12-25 01:00 | NUR ---
MD round: Dr Antonino Zuleta at the bedside. Patient verbally unable to answer to Dr Zuleta . Patient always moaning and whining that she's in pain .Dr Zuleta cancelled the CAROLE procedure that is supposed to be done in AM. Per MD since patient is anxious , not eating and restless CAROLE can be done later when patient is stable.
[2019-12-25] MEDS: ACETAMINOPHEN 325 MG TAB PO PRN (01:57)
[2019-12-25] MEDS: MORPHINE SULF INJ 2 MG/ML SYRINGE 1ML IV PRN ×3 (03:02→11:13)
[2019-12-25] MEDS: LINEZOLID 600MG/300ML 300 ML IV SCH (03:46)
[2019-12-25] MEDS: D5W/SOD CHL 0.45% 1,000 ML IV SCH ×2 (03:47→13:00)
[2019-12-25 05:00] VITALS: BP 103/59
--- NOTE | 2019-12-25 06:00 | NUR ---
Patient c/o generalized pain . Medicated with Morphine 2 mg IV Q 4 hour and hot packs applied to her bilateral shoulder , back and lower ext continuously to relieve pain. Advised patient to discuss with MD today any concern re : pain medication and she verbalized understanding.
[2019-12-25] MEDS: ONDANSETRON HCL 4 MG/2 ML VIAL IV SCH ×2 (07:07→14:00)
--- NOTE | 2019-12-25 07:30 | NUR ---
CAROLE POSTPONED BY DR Antonino SAN
[2019-12-25 08:00] VITALS: BP 109/56
[2019-12-25 08:53] VITALS: BP 109/56
[2019-12-25] MEDS: MEROPENEM 1GM IVPB 100 ML IV SCH (09:55)
[2019-12-25] MEDS: PANTOPRAZOLE 40 MG TAB PO SCH (09:56)
[2019-12-25 13:00] VITALS: BP 90/41
--- NOTE | 2019-12-25 15:45 | NUR ---
PATIENT DISCHARGED HOME WITH FAMILY. TELEMETRY BOX REMOVED AND RETURNED TO TELEMETRY DEPARTMENT. ALL IV ACCESS DISCONTINUED. ALL DISCHARGE INSTRUCTIONS GIVEN. ALL DISCHARGE PAPERWORK SIGNED.
== END 2019-12-25 15:45 | disposition home or self-care (01) | DRG 871 ==
LOC: EEVIPCON 16:28 → ER 16:28 → EDBD 16:28 → TELE 16:29 → TELE-WESTW 12-20 15:47
PROVIDERS: ADMIT Specialist; ATTEND Family Medicine
DX: A41.9 Sepsis, unspecified organism (principal); E43 Unspecified severe protein-calorie malnutrition; E87.1 Hypo-osmolality and hyponatremia; N39.0 Urinary tract infection, site not specified; L03.114 Cellulitis of left upper limb; L03.113 Cellulitis of right upper limb; E86.0 Dehydration; F11.10 Opioid abuse, uncomplicated; F15.10 Other stimulant abuse, uncomplicated; F17.210 Nicotine dependence, cigarettes, uncomplicated; G89.29 Other chronic pain; F41.9 Anxiety disorder, unspecified; F32.9 Major depressive disorder, single episode, unspecified; M54.5 Low back pain; G62.9 Polyneuropathy, unspecified; N18.9 Chronic kidney disease, unspecified; Z68.20 Body mass index [BMI] 20.0-20.9, adult; Z88.1 Allergy status to other antibiotic agents; Z79.899 Other long term (current) drug therapy; Z59.0 Homelessness
CPT/HCPCS: 36415; 51702; 71045; 71275; 74176; 80053; 80076; 80307; 81001; 81025; 83605; 83880; 85025; 85379; 85610; 85730; 86703; 87040; 87081; 87086; 93005; 93306; 93970; 96365; 96367; 96372; 96375; G0378; J2185; J2405; J2543

== ENCOUNTER 2021-06-26 21:02 | Emergency (ER) | payer BC, MEDICAID ==
[~2021-06-26] VITALS: Ht 172.7 cm; Wt 63.5 kg
[2021-06-26] MEDS ORDERED: SODIUM CHLORIDE 0.9% 1,000 ML IV ONE (21:15)
[2021-06-26] MEDS ORDERED: ONDANSETRON HCL 4 MG/2 ML VIAL IV ONE (21:15)
[2021-06-26] MEDS ORDERED: ACETAMINOPHEN 500 MG TAB PO ONE (21:15)
[2021-06-26 21:44] LABS: Basophils # (auto) 0 10 ^3/uL (0-0.2); Basophils % (auto) 0.2 % (0.0-2.0); Eosinophils # (auto) 0 10 ^3/uL (0-0.8); Hematocrit 35.2 % (36.0-46.0); Hemoglobin 12.3 g/dL (12.2-16.2); Lymphocytes # (auto) 0.7 10 ^3/uL (0.4-5.4); Lymphocytes % (auto) 3.8 % (10.0-50.0); Mean Corpuscular Hemoglobin 31.3 pg (28.0-32.0); Mean Corpuscular Hgb Conc. 34.8 g/dL (32.0-36.0); Mean Corpuscular Volume 89.8 fL (80.0-100.0); Monocytes # (auto) 1.9 10 ^3/uL (0-1.3); Monocytes % (auto) 9.9 % (0.0-12.0); Neutrophils # (auto) 16.4 10 ^3/uL (1.6-8.6); Neutrophils % (auto) 86.1 % (37.0-80.0); Red Blood Cells 3.93 10^6/uL (4.0-5.20); Red Cell Distribution Width 12.5 % (11.8-14.3); White Blood Cell 19.1 10^3/uL (4.4-10.8)
[2021-06-26 22:14] LABS: Albumin 2.7 g/dL (3.4-5.0); Anion Gap 8 (5-15); BUN/Creatinine Ratio 22.9; Blood Urea Nitrogen 19 mg/dL (7-18); Calcium 8.1 mg/dL (8.5-10.1); Carbon Dioxide 25 mmol/L (21-32); Chloride 99 mmol/L (98-107); GFR African American 108 mL/min; GFR Non-African American 89 mL/min; Glucose 113 mg/dL (74-106); Lipase 46 U/L (73-393); Potassium 3.7 mmol/L (3.5-5.1); Sodium 132 mmol/L (136-145)
[2021-06-26 22:19] LABS: Alanine Aminotransferase 20 U/L (13-56); Alkaline Phosphatase 23 U/L (45-117); Aspartate Aminotransferase 16 U/L (15-37); Bilirubin, Total 0.6 mg/dL (0.2-1.0); Total Protein 7.4 g/dL (6.4-8.2)
[2021-06-26] MEDS ORDERED: KETOROLAC TROMETH 30 MG/ML 1ML VIAL IV ONE (22:45)
[2021-06-26] MEDS ORDERED: cefTRIAXone 1GM/50ML D5W 50 ML IV ONE (22:45)
[2021-06-26 23:22] VITALS: BP 96/49
== END 2021-06-26 23:57 | disposition home or self-care (01) ==
LOC: ER 21:04 → EEVIPCON 21:04 → ER 23:57
DX: B34.9 Viral infection, unspecified (principal); N39.0 Urinary tract infection, site not specified; R07.89 Other chest pain; F17.210 Nicotine dependence, cigarettes, uncomplicated; F12.10 Cannabis abuse, uncomplicated; F15.10 Other stimulant abuse, uncomplicated; F11.10 Opioid abuse, uncomplicated; I50.9 Heart failure, unspecified; N18.9 Chronic kidney disease, unspecified
CPT/HCPCS: 36415; 71045; 74176; 80053; 83605; 83690; 83880; 84484; 85025; 93005; 96361; 96365; 96375; 99285; J0696; J1885; J2405; J7030

== ENCOUNTER 2022-08-22 09:07 | Emergency (ER) | payer BC, MEDICAID ==
[~2022-08-22] VITALS: Ht 175.3 cm; Wt 58.0 kg
[2022-08-22] MEDS ORDERED: SODIUM CHLORIDE 0.9% 1,000 ML IV ONE ×2 (10:30)
[2022-08-22 11:18] LABS: Urine Bacteria FEW /hpf (None Seen); Urine Blood Negative /uL (Negative); Urine Mucus FEW (None Seen); Urine Specific Gravity 1.027 (1.001-1.035); Urine WBC 15 /hpf (0 - 5)
[2022-08-22 11:26] LABS: Alcohol, Urine < 3.0 mg/dL (0-10); Amphetamine Screen, Urine POSITIVE (NEGATIVE); Barbiturate Scree,Urine NEGATIVE (NEGATIVE); Benzodiazephine Screen, Urine NEGATIVE (NEGATIVE); Cannabinoid Screen, Urine NEGATIVE (NEGATIVE); Cocaine Screen, Urine NEGATIVE (NEGATIVE); Opiate Scree,Urine NEGATIVE (NEGATIVE); Phencyclidine Screen, Urine POSITIVE (NEGATIVE)
[2022-08-22 11:48] LABS: Basophils # (auto) 0 10 ^3/uL (0-0.2); Basophils % (auto) 0.2 % (0.0-2.0); Eosinophils # (auto) 0 10 ^3/uL (0-0.8); Eosinophils % (auto) 0.3 % (0.0-7.0); Hematocrit 43.6 % (36.0-46.0); Hemoglobin 14.7 g/dL (12.2-16.2); Lymphocytes % (auto) 17.7 % (10.0-50.0); Mean Corpuscular Hemoglobin 31.1 pg (28.0-32.0); Mean Corpuscular Hgb Conc. 33.8 g/dL (32.0-36.0); Monocytes # (auto) 0.9 10 ^3/uL (0-1.3); Monocytes % (auto) 7.9 % (0.0-12.0); Neutrophils # (auto) 8.2 10 ^3/uL (1.6-8.6); Neutrophils % (auto) 73.9 % (37.0-80.0); Red Blood Cells 4.75 10^6/uL (4.0-5.20); Red Cell Distribution Width 13.1 % (11.8-14.3); White Blood Cell 11.1 10^3/uL (4.4-10.8)
[2022-08-22 12:05] LABS: Albumin 3.9 g/dL (3.4-5.0); Calcium 8.9 mg/dL (8.5-10.1); Potassium 3.6 mmol/L (3.5-5.1)
[2022-08-22 12:13] LABS: BUN/Creatinine Ratio 18.3; Bilirubin, Total 0.5 mg/dL (0.2-1.0); Total Protein 7.6 g/dL (6.4-8.2)
[2022-08-22] MEDS ORDERED: CEPH-510 PO (13:46)
[2022-08-22 14:06] VITALS: BP 119/78
== END 2022-08-22 14:06 | disposition home or self-care (01) ==
LOC: EEVIPCON 09:07 → ER 09:07
DX: S80.12XA Contusion of left lower leg, initial encounter (principal); S80.11XA Contusion of right lower leg, initial encounter; I13.0 Hypertensive heart and chronic kidney disease with heart failure and stage 1 through stage 4 chronic kidney disease, or unspecified chronic kidney disease; N18.9 Chronic kidney disease, unspecified; I50.9 Heart failure, unspecified; F17.210 Nicotine dependence, cigarettes, uncomplicated; F12.10 Cannabis abuse, uncomplicated; F11.10 Opioid abuse, uncomplicated; R51.9 Headache, unspecified; Z88.1 Allergy status to other antibiotic agents; X58.XXXA Exposure to other specified factors, initial encounter; Y93.89 Activity, other specified; Y92.89 Other specified places as the place of occurrence of the external cause; Y99.8 Other external cause status
CPT/HCPCS: 36415; 70450; 70486; 72125; 73130; 80053; 80307; 81001; 81025; 85025; 96360; 99285; J7030

== ENCOUNTER 2022-12-09 19:46 | Emergency (ER) | payer MEDICAID ==
[~2022-12-09] VITALS: Ht 175.3 cm; Wt 59.1 kg
[~2022-12-09 19:46] MED LIST changes: +CEPH-510 PO
[2022-12-09 19:58] VITALS: BP 151/86
== END 2022-12-09 21:18 | disposition left against medical advice (07) ==
LOC: ER 19:46 → EEVIPCON 19:46 → ER 21:18
DX: S00.12XA Contusion of left eyelid and periocular area, initial encounter (principal); S80.01XA Contusion of right knee, initial encounter; S60.512A Abrasion of left hand, initial encounter; S70.212A Abrasion, left hip, initial encounter; S80.211A Abrasion, right knee, initial encounter; Y04.8XXA Assault by other bodily force, initial encounter; Y93.89 Activity, other specified; Y92.098 Other place in other non-institutional residence as the place of occurrence of the external cause; Y99.8 Other external cause status

== ENCOUNTER 2023-07-10 15:48 | Emergency (ER) | payer MEDICAID ==
[~2023-07-10] VITALS: Ht 175.3 cm; Wt 60.0 kg
[~2023-07-10 15:48] MED LIST changes: +GABA-1308 PO; -GABA100C9 PO
[2023-07-10 15:50] VITALS: BP 120/77; PULSE 102
[2023-07-10 16:38] VITALS: RESP 16; O2SAT 97
[2023-07-10 16:50] LABS: Urine Bacteria FEW /hpf (None Seen); Urine Blood Negative /uL (Negative); Urine Clarity Clear (Clear); Urine Color Yellow (Yellow); Urine Mucus FEW (None Seen); Urine Protein, UAD TRACE (Negative); Urine Urobilinogen Normal (Negative); Urine WBC 2 /hpf (0 - 5)
[2023-07-10 16:51] LABS: Amphetamine Screen, Urine Pos (NEGATIVE); Barbiturate Scree,Urine Neg (NEGATIVE); Benzodiazephine Screen, Urine Neg (NEGATIVE); Cocaine Screen, Urine Neg (NEGATIVE)
[2023-07-10 16:52] LABS: Cannabinoid Screen, Urine Neg (NEGATIVE); Opiate Scree,Urine Neg (NEGATIVE); Phencyclidine Screen, Urine Neg (NEGATIVE)
== END 2023-07-10 17:35 ==
LOC: ER 15:48
DX: F12.10 Cannabis abuse, uncomplicated (principal); F15.10 Other stimulant abuse, uncomplicated; F14.10 Cocaine abuse, uncomplicated; F17.210 Nicotine dependence, cigarettes, uncomplicated; Z32.02 Encounter for pregnancy test, result negative; Z88.1 Allergy status to other antibiotic agents; Z88.2 Allergy status to sulfonamides; Z79.899 Other long term (current) drug therapy
CPT/HCPCS: 80307; 81001; 81025

== ENCOUNTER 2025-08-06 19:11 | Emergency (ER) | payer MEDICAID ==
[~2025-08-06] VITALS: Ht 172.7 cm; Wt 64.8 kg
[2025-08-06 19:14] VITALS: BP 103/67; PULSE 90; RESP 18; TEMP 98.3; O2SAT 99
[2025-08-06] MEDS ORDERED: SERT50TA PO (19:36)
[2025-08-06] MEDS ORDERED: BUSP30TA PO (19:36)
--- NOTE | 2025-08-06 19:36 | ED.PDOC ---
History of Present Illness HPI Comments This patient is a 30-year-old female who arrives the ED today for assistance with medication refill. Patient has had difficulty swallowing up with her psychiatrist for her Zoloft and BuSpar. Patient denies any fever nausea or vomiting. Vital signs were stable on arrival. Patient states she will finish off both her medications today. Chief Complaint: Anxiety Time Seen by MD: 19:19 Primary Care Provider: ? Reviewed Notes: Nurses Notes Allergies: Coded Allergies: Vancomycin (Verified Allergy, Intermediate, 12/20/19) Ciprofloxacin (Verified Allergy, Unknown, RASH, 03/19/16) ITCHY/RASH Lorazepam (Verified Allergy, Unknown, 03/19/16) Sulfa Antibiotics (Verified Allergy, Unknown, 03/19/16) Home Meds Active Scripts Cephalexin ( Keflex 500) 500 Mg Cap, 1 CAP PO QID for 7 Days, #28 CAP Prov:KIA STOKES MD 08/22/22 Gabapentin (Gabapentin) 100 Mg Cap, 200 MG PO TID, #90 CAP Prov:GERALDO ANDRADE MD 12/13/19 Information Source: Patient Mode of Arrival: Ambulatory Severity: Moderate Timing: Hours Prehospital treatment: Treatment Medication Refill: Ran out of Medication, For: Psychiatric Past Medical History PAST MEDICAL HISTORY: Anxiety, CHF, CKF, Depression Surgical History: Denies all surgeries TEACHING YOUNG History: No Pertinent TEACHING YOUNG History Family History Family History: Reviewed,noncontributory to illness Social History Smoker: Cigarettes, Less Than 1 Pack/Day Alcohol: Occasionally Drugs: Heroin, Marijuana, Methamphetamine Lives In: Home Constitutional: denies: chills, diaphoresis, fatigue, fever, malaise, sweats, weakness, others EENTM: denies: blurred vision, double vision, ear bleeding, ear discharge, ear drainage, ear pain, ear ringing, eye pain, eye redness, hearing loss, mouth pain, mouth swelling, nasal discharge, nose bleeding, nose congestion, nose pain, photophobia, tearing, throat pain, throat swelling, voice changes, others Respiratory: denies: cough, hemoptysis, orthopnea, SOB at rest, shortness of breath, SOB with excertion, stridor, wheezing, others Cardiovascular: denies: chest pain, dizzy spells, diaphoresis, Dyspnea on exertion, edema, irregular heart beat, left arm pain, lightheadedness, palpitations, PND, syncope, others Gastrointestinal: denies: abdomen distended, abdominal pain, blood streaked bowels, constipated, diarrhea, dysphagia, difficulty swallowing, hematemesis, melena, nausea, poor appetite, poor fluid intake, rectal bleeding, rectal pain, vomiting, others Genitourinary: denies: abnormal vagina bleeding, burning, dyspareunia, dysuria, flank pain, frequency, hematuria, incontinence, pain, , vagina discharge, urgency, others Neurological: denies: dizziness, fainting, headache, left sided numbness, left sided weakness, numbness, paresthesia, pre-existing deficit, right sided numbness, right sided weakness, seizure, speech problems, tingling, tremors, weakness, others Musculoskeletal: denies: back pain, gout, joint pain, joint swelling, muscle pain, muscle stiffness, neck pain, others Integumetry: denies: bruises, change in color, change in hair/nails, dryness, laceration, lesions, lumps, rash, wounds, others Allergic/Immunocompromised: denies: Difficulty Healing, Frequent Infections, Hives, Itching, others Hematologic/Lymphatic: denies: anemia, blood clots, easy bleeding, easy bruising, swollen glands, others Endocrine: denies: excessive hunger, excessive sweating, excessive thirst, excessive urination, flushing, intolerance to cold, intolerance to heat, unexplained weight gain, unexplained weight loss, others Psychiatric: denies: anxiety, bipolar disorder, depression, hopeless, panic disorder, schizophrenia, sleepless, suicidal, others Physical Exam General Appearance: Mild Distress, Normal HEENT: Normal ENT Inspection, Pharynx Normal, TMs Normal Neck: Full Range of Motion, Non-Tender, Normal, Normal Inspection Respiratory: Chest Non-Tender, Lungs Clear, No Accessory Muscle Use, No Resp iratory Distress, Normal Breath Sounds Cardiovascular: No Edema, No JVD, No Murmur, No Gallop, Normal Peripheral Pulses, Regular Rate/Rhythm Breast Exam: Deferred Gastrointestinal: No Organomegaly, Non Tender, No Pulsatile Mass, Normal Bowel Sounds, Soft Genitalia: Deferred Pelvic: Deferred Rectal: Deferred Extremities: No calf tenderness, Normal inspection Neurologic: Alert Cerebellar Function: NOT DONE Reflexes: NOT DONE Skin: Dry, Normal Color, Warm Lymphatic: No Adenopathy Was a procedure done? Was a procedure done?: No Differential Dx Considerations may include: Encounter for medication refill, depression, anxiety X-Ray, Labs, Meds, VS Vital Signs Date Time Temp Pulse Resp B/P (MAP) Pulse Ox O2 Delivery O2 Flow Rate FiO2 08/06/25 19:14 98.3 90 18 103/67 99 98.3 X-Ray, Labs, Meds, VS Comment Spent time discussing the patient's request with her. Advised that I will prescribe a two week supply of her medication, but she will need to follow up with her psychiatrist or mental health evaluate her for continued medication management. Time of 1ST Reevaluation: 19:32 Reevaluation 1ST: Unchanged Consultation: PCP, Psychiatry Patient Education/Counseling: Diagnosis, Treatment Family Education/Counseling: Diagnosis, Treatment SEPSIS Sepsis Screen Date sepsis recognized/suspect: Aug 06, 2025 Time Sepsis recognized/suspect: 1916 Recent Procedure: No On Antibiotic Therapy: No Respiratory Rate >20: No Heart Rate >90: No Temp<36 C (96.8 F) or >38.3 C: No SBP <90 or MAP <65 mmHG: No New Acute Mental Status Change: No Is the patient on CPAP, BIPAP,: No Vital Signs Date Time Temp Pulse Resp B/P (MAP) Pulse Ox O2 Delivery O2 Flow Rate FiO2 08/06/25 19:14 98.3 90 18 103/67 99 98.3 Departure 1 Departure Time of Disposition: 19:32 Impression: Primary Impression: Encounter for medication refill Additional Impression: Psychosis Disposition: HOME / SELF CARE / HOMELESS Condition: Stable Additional Instructions: Advised patient utilize medication as directed. Patient needs to follow up with her mental health or psychiatric evaluation for long-term medication management. e-Prescriptions Sertraline Hcl (Zoloft) 50 Mg Tab 3 TAB PO DAILY, #45 TAB 0 Refills Prov: SANFORD MARISCAL PAC 08/06/25 Buspirone Hcl (Buspirone Hcl) 30 Mg Tab 30 MG PO BID, #30 TAB Prov: SANFORD MARISCAL PAC 08/06/25 Discharged With: Self, Friend Critical Care Note Critical Care Time?: No Stability Stability form required: No Heart Score Heart Score: Heart Score Response (Comments) Value History N/A 0 EKG N/A 0 Age N/A 0 Risk Factors N/A 0 Troponin N/A 0 Total 0 SANFORD MARISCAL PAC Aug 06, 2025 19:36
== END 2025-08-06 19:45 | disposition home or self-care (01) ==
LOC: ER 19:11
DX: F29 Unspecified psychosis not due to a substance or known physiological condition (principal); Z76.0 Encounter for issue of repeat prescription; F32.A Depression, unspecified; F41.9 Anxiety disorder, unspecified; I50.9 Heart failure, unspecified; F17.210 Nicotine dependence, cigarettes, uncomplicated; Z88.1 Allergy status to other antibiotic agents; Z88.2 Allergy status to sulfonamides